=== PATIENT | female | born 1985 | race Caucasian/White ===

== ENCOUNTER 2017-11-04 15:35 | Emergency (ER) | payer OTHER ==
[~2017-11-04] VITALS: Ht 162.6 cm; Wt 77.1 kg
--- NOTE | ~2017-11-04 | EKG ---
[address] [address] ELECTROCARDIOGRAM REPORT Name: DAILY MOSQUEDA Room #: [facility]#: [id number] Admission: 11/04/17 Attend Phys: Discharge: 11/04/17 Date of : 83 Report #: [id number] THIS REPORT FOR: //name// [facility] ED Test Date: 2017-11-04 Test Time: 16:03:54 Pat Name: DAILY MOSQUEDA Department: Room: Gender: F [employer] Install[employer]: SHAGGY : 1985 Requested By: Jeanne Bailey Order Number: [id number] MD: Brando Sanford Measurements Intervals [place] Rate: 80 P: 44 NC: 131 QRS: 40 QRSD: 91 T: 24 QT: 385 QTc: 445 Interpretive Statements Sinus rhythm Normal tracing No previous ECG available for comparison Electronically Signed On 11-04-2017 16:56:17 CDT by Brando Sanford [email or web address] <ELECTRONICALLY SIGNED> By: Brando Sanford MD, [facility] 11/04/17 1656 1603 1603 Brando Sanford MD, FACC /EPI
[2017-11-04 16:54] VITALS: BP 122/73
== END 2017-11-04 16:45 | disposition home or self-care (01) ==
LOC: ER 15:35
DX: F41.9 Anxiety disorder, unspecified (principal); F11.10 Opioid abuse, uncomplicated; F17.210 Nicotine dependence, cigarettes, uncomplicated